=== PATIENT | female | born 1990 | race Two or more races ===

== ENCOUNTER 2018-04-12 10:48 | Emergency (ER) | payer OTHER ==
[~2018-04-12] VITALS: Ht 147.3 cm; Wt 88.6 kg
--- NOTE | 2018-04-12 12:04 | NUR ---
PT WALKED BACK FROM LOBBY TO ROOM AT THIS TIME. NAD NOTED. RESP EVEN ADN EQAUL.
[2018-04-12] MEDS ORDERED: KETOROLAC 30 MG/1 ML ONE (12:42)
[2018-04-12] MEDS ORDERED: DIAZEPAM 5 MG TABLET ONE (12:42)
[2018-04-12] MEDS ORDERED: KETOROLAC 30 MG/1 ML IM ONE (13:00)
[2018-04-12] MEDS ORDERED: DIAZEPAM 5 MG TABLET PO ONE (13:00)
[2018-04-12 13:35] VITALS: BP 126/75
== END 2018-04-12 13:37 | disposition home or self-care (01) ==
LOC: ED 13:30
DX: S16.1XXA Strain of muscle, fascia and tendon at neck level, initial encounter (principal); V49.49XA Driver injured in collision with other motor vehicles in traffic accident, initial encounter; Y93.89 Activity, other specified; Y92.89 Other specified places as the place of occurrence of the external cause; Y99.8 Other external cause status
CPT/HCPCS: 72125; 96372; 99284; J1885